=== PATIENT | female | born 1965 | race African-American/Black ===

== ENCOUNTER 2018-05-06 01:53 | Inpatient (IN) | payer SELFPAY ==
[2018-05-06 02:31] LABS: Mean Corpuscular HGB CONC 30.8 g/dL (32.0-36.0); Mean Corpuscular Hemoglobin 24.4 pg (27.0-31.0); Mean Corpuscular Volume 79.3 fL (78.0-98.0); Mean Platelet Volume 11.4 fL (7.4-10.4); Platelet Count 171 thou/uL (130-400); RBC Distribution Width 16.5 % (11.5-14.5); Red Blood Cell (RBC) Count 5.34 mill/uL (4.20-5.40); White Blood Cell (WBC) Count 22.2 thou/uL (4.8-10.8)
[2018-05-06 02:52] LABS: ALT (SGPT) 14 U/L (8-55); AST (SGOT) 13 U/L (5-34); Alkaline Phosphatase 178 U/L (40-150); Anion Gap 14 mmol/L (10-20); BUN (Urea Nitrogen) 8 mg/dL (9.8-20.1); Bilirubin, Total 1.1 mg/dL (0.2-1.2); CK (CPK) 115 U/L (29-168); Calc. Creatinine Clearance 0 mL/min (70-130); Calcium 9.6 mg/dL (7.8-10.44); Carbon Dioxide 22 mmol/L (22-29); Chloride 106 mmol/L (98-107); Estimated GFR-MDRD 68; Globulin 3.5 g/dL (2.4-3.5); Glucose 153 mg/dL (70-105); Potassium 3.7 mmol/L (3.5-5.1); Protein, Total 7.5 g/dL (6.0-8.3); Sodium 138 mmol/L (136-145)
[2018-05-06 02:55] LABS: CKMB 0.4 ng/mL (0-6.6); Troponin I Less than 0.010 ng/mL (< 0.028)
[2018-05-06 03:00] LABS: Band 6 % (5-11); Lymphocytes 13 % (21-51); MDiff Complete? YES; Monocytes 7 % (0-10); Neutrophil 74 % (42-75); PLT Morphology Comment Appears Adequate
[2018-05-06] MEDS ORDERED: Morphine 2 MG/ML SYRINGE ONE ×2 (04:15→06:00)
[2018-05-06] MEDS ORDERED: Enoxaparin Sodium 100 MG/ML SYRINGE ONE (04:48)
[2018-05-06] MEDS ORDERED: Enoxaparin Sodium 30 MG/0.3 ML SYRINGE ONE (04:48)
[2018-05-06] MEDS ORDERED: Guaifenesin DM 100-10/5 ML UDCUP PO PRN (05:18)
[2018-05-06] MEDS ORDERED: Enoxaparin Sodium 120 MG/0.8 ML SYRINGE SC SCH (05:30)
[2018-05-06 05:35] LABS: Actual Bicarbonate (HCO3a) 22.8 mEq/L (22-28); Analyzer IN Cardio ER; Base Excess (BEa) -1.4 mEq/L (-2.0 to +3.0); CO2 Tension 36.7 mmHg (35.0-45.0); Calcium, Ionized 1.14 mmol/L (1.12-1.30); Carboxyhemoglobin (COHb) 2.8 gm% (0.0-3.0); Hemoglobin (Hb) 13.2 g/dL (12.0-16.0); O2 Tension (PaO2) 67.7 mmHg (80.0-100.0); Potassium - ABG Lab 3.77 mmol/L (3.70-5.30); pH, Arterial 7.41 (7.35-7.45)
[2018-05-06 05:36] LABS: Puncture Site LRA
[2018-05-06 05:37] LABS: ALV-art Gradient 128.845 (0-20)
--- NOTE | 2018-05-06 05:46 | HP ---
DATE OF ADMISSION: 05/06/2018 REASON FOR ADMISSION: Pulmonary embolus, acute respiratory failure with hypoxia, possible sepsis. HISTORY OF PRESENT ILLNESS: The patient stays she started having chest pain from Thursday, which was worse on deep breathing and radiating to the back. This was worse on the left side of her chest. ronal initially thought this was gas pain. This progressively got worse yesterday and finally she made i t to the emergency room here. On arrival, the patient was on nonrebreather and was saturating 70% pr ior to that. Currently, she is back on 2 liters nasal cannula and is saturating 95%. Has dry cough, but no expectoration. No history of fever. The patient states she is active in life and takes care of her mom. No recent history of long travel. PAST MEDICAL AND SURGICAL HISTORY: Schizophrenia, follows up with [facility], anxiety, depression, scolios is, left breast biopsy. CURRENT MEDICATIONS: Takes Prozac and an unknown schizophrenia medication. She goes to [facility] in [place] and we will try to obtain her medication list from either her pharmacy or [facility]. ALLERGIES: No known drug allergies. PERSONAL HISTORY: Smokes half pack a day. Does not abuse alcohol or drugs. She lives by herself. Has 2 sons who live in [place]. FAMILY HISTORY: Mother is living and the patient takes care of her. No history of early heart disea se in the family or clots. CODE STATUS: Full. Power of assistant district attorney is her mother, Ms. Dean. REVIEW OF SYSTEMS: The following complete review of systems was negative, unless otherwise mentioned in the HPI or below: Constitutional: Weight loss or gain, ability to conduct usual activities. Sk in: Rash, itching. Eyes: Double vision, pain. ENT/Mouth: Nose bleeding, neck stiffness, pain, te nderness. Cardiovascular: Palpitations, dyspnea on exertion, orthopnea. Respiratory: Shortness of breath, wheezing, cough, hemoptysis, fever or night sweats. Gastrointestinal: Poor appetite, abdom inal pain, heartburn, nausea, vomiting, constipation, or diarrhea. Genitourinary: Urgency, frequenc y, dysuria, nocturia. Musculoskeletal: Pain, swelling. Neurologic/Psychiatric: Anxiety, depressio n. Allergy/Immunologic: Skin rash, bleeding tendency. PHYSICAL EXAMINATION: GENERAL: The patient is a 53-year-old female who is currently not in any acute distress. VITAL SIGNS: Blood pressure 136/64, pulse 120 per minute, respiratory rate 26 per minute, temperatur e 98.9 degrees Fahrenheit, saturating 95% on 2 liters nasal cannula. NECK: Supple. No elevated JVD. HEENT: Extraocular muscles intact. Pupils reacting to light. Oral cavity, mucous membranes are dry . No exudates or congestion. CARDIOVASCULAR: S1, S2 heard. Tachycardic. No murmur. RESPIRATORY: Air entry 1+ bilateral. Scattered wheezes plus bilaterally. ABDOMEN: Soft. Bowel sounds heard. No tenderness, rigidity or guarding. EXTREMITIES: No peripheral edema or calf tenderness. VASCULAR SYSTEM: Peripheral pulses 1+ bilateral. No ischemic ulcerations or gangrene. CENTRAL NERVOUS SYSTEM: No gross focal deficits noted. The patient is alert, awake and oriented wel l. PSYCHIATRIC: The patient's mood is a bit anxious, otherwise no hallucinations or delusions. LABORATORY AND X-RAY FINDINGS: EKG done shows sinus tachycardia at 115 beats per minute. There is l eft anterior fascicular block seen. CT angio chest read by [facility] shows intraluminal fill ing defect involving left main pulmonary artery and upper and lower lobe branches, peripheral right-s ided branches are poorly visualized due to respiratory motion. White count of 22, H and H 13 and 42, platelet count 171,000, MCV 79 with 74% neutrophils, 6% bands. D-dimer was 3.8. Electrolytes are s table. BUN 8, creatinine 1.0, serum glucose 153. AST and ALT within normal limits. Alkaline phosph atase is 178, albumin is 4.0. First set of cardiac enzymes are negative. CLINICAL IMPRESSION AND PLAN: The patient will be admitted to telemetry for pulmonary embolus with p leuritic left-sided chest pain. The patient also has elevated white count and has chronic obstructiv e pulmonary disease exacerbation as well. She will be empirically placed on Levaquin 500 mg IV daily . Blood and sputum cultures will be obtained. Ultrasound venous Doppler of lower extremities will b e obtained. She will be on Lovenox 110 mg q.12 hourly. She can be switched over to newer anticoagul ants in the morning once she is more stable. She has acute respiratory failure with hypoxia on arriv al and is slowly getting stabilized on nasal cannula at present. We will also give her steroids, Oksana u-Medrol 40 mg IV q.6 hourly. DuoNeb q.6 hourly. An echo with 2D Doppler will be obtained as well. Pulmonary consultation with Dr. Pham who is crack off person will be requested as well.
[2018-05-06] MEDS ORDERED: Levofloxacin 750 mg/D5W 500 MG in Premix Bag 1 BAG IVPB SCH (06:00)
[2018-05-06] MEDS ORDERED: Acetaminophen 325 MG TAB PO PRN (07:21)
[2018-05-06] MEDS ORDERED: Ondansetron PF 4 MG/2 ML Vial IVP PRN (07:21)
[2018-05-06] MEDS ORDERED: Ondansetron ODT 4 MG TAB SL PRN (07:21)
--- NOTE | 2018-05-06 07:59 | RAD ---
CHEST 1 VIEW: HISTORY: Chest pain. COMPARISON: None available. FINDINGS: Cardiac silhouette is magnified by projection. Pulmonary vasculature upper limits of normal. Ill-de fined parenchymal opacity at the left anterior lung base obscures the left cardiac margin. No eviden ce of pneumothorax. IMPRESSION: Lingular infiltrate left upper lobe. Please see report from subsequently performed CT arteriogram ch est. POS: [facility]
--- NOTE | 2018-05-06 08:12 | CT ---
PRELIMINARY REPORT/[facility]/EMERGENTY AFTER-HOURS PROCEDURE CT Angiography Chest With Intravenous Contrast EXAM DATE/TIME: 05/06/2018 4:33 AM CLINICAL HISTORY: 53 years old, female; Pain and signs and symptoms; Shortness of breath; Chest pain; Patient HX: Er 3; 53 yo f w/ pmh of anxiety, morbid obesity and tobacco abuse presents via ems for evaluation of chest pain described as sharp and shooting located in left chest radiating to left arm and back. Worse wit h deep inspiration. No associated n/v diaphoresis. Does report pleuritic type pain. TECHNIQUE: Axial computed tomographic angiography images of the chest with intravenous contrast using CT angiogr aphy protocol. Coronal reformatted images were created and reviewed. MIP reconstructed images were created and reviewed. COMPARISON: No relevant prior studies available. FINDINGS: Pulmonary arteries: There is intraluminal filling defect involving the LEFT main pulmonary artery and upper and lower lobe branches. Peripheral right-sided branches are poorly visualized due to respirat ory motion. Aorta: The aorta is normal. There is no evidence of aortic dissection, leak, rupture, or other compli cations. Lungs: There are areas of atelectasis and consolidation within the LEFT lung particularly within the lingula and LEFT lower lobe; an element of pulmonary infarction cannot be excluded. Pleural space: There is trace LEFT pleural effusion. Heart: RV LV ratio measures 0.8. No evidence of RIGHT heart strain. Mediastinum: The trachea is normal. Thyroid: The visualized thyroid gland is unremarkable. Bones/joints: There are healed left rib fractures. Soft tissues: Unremarkable. Lymph nodes: Unremarkable. No enlarged lymph nodes. Liver: There is a simple right lobe hepatic cyst. There are multiple liver hypodensities that cannot be further characterized on the current examination. Adrenals: There is nonspecific LEFT adrenal gland thickening. IMPRESSION: 1. Extensive acute left-sided pulmonary emboli as above. No CT evidence of RIGHT heart strain. 2. There are peripheral areas of atelectasis and consolidation within the LEFT lung particularly with in the lingula and LEFT lower lobe; an element of pulmonary infarction cannot be excluded. 3. Large RIGHT liver cyst and smaller hypodensities also probably representing cysts in a low risk pa tient. Thank you for allowing us to participate in the care of your patient. Dictated and Authenticated by: Demetrio Vázquez MD 05/06/2018 5:00 AM Central Time ([place] & [place]) FINAL REPORT CT PULMONARY ANGIO OF CHEST INCLUDING 3D RENDERING: EMERGENCY AFTER HOURS EXAM: TIME: 4:35 a.m. DATE: 05/06/2018. Very extensive left-sided pulmonary thromboemboli including the left main pulmonary artery as well as some less marked peripheral changes in the right pulmonary artery branches with patchy parenchymal c hanges in the lingula and left lower lobe with a small left pleural effusion, evidence for pulmonary infarct or possibly pneumonia or pneumonitis. Stable liver hypodensities and nodular-appearing adren al gland. POS: [facility]
--- NOTE | 2018-05-06 10:00 | CON ---
DATE OF CONSULTATION: 05/06/2018 CONSULTING PHYSICIAN: Hospitalist group. REASON FOR CONSULTATION: Pulmonary embolism. HISTORY OF PRESENT ILLNESS: This patient is a 53-year-old female who presented with a day long histo ry of left-sided chest pain. She was found to have an extensive left-sided pulmonary embolism. She was initially short of breath, has been weaned down to about 2 liters nasal cannula. She continued t o complain of left-sided chest pain. She has no previous history of trauma to her leg. She has no history of prolonged bed rest. She has no family history of pulmonary emboli. She is not taking any type of estrogen therapy or cont rol. PAST MEDICAL HISTORY: 1. Schizophrenia. 2. Depression. 3. Anxiety. PAST SURGICAL HISTORY: She had a left breast biopsy. MEDICATIONS PRIOR TO ADMISSION: Prozac and some other schizophrenia medication. ALLERGIES: None. SOCIAL HISTORY: Smokes half pack per day. Denies alcohol or illicit drug use. Just moved here [facility] from [place] to take care of her mother. FAMILY MEDICAL HISTORY: Unremarkable. REVIEW OF SYSTEMS: Twelve point review of systems otherwise negative. PHYSICAL EXAMINATION: VITAL SIGNS: Temperature 98.4, pulse 100, respiration 16, O2 sat 92% on 3 liters, blood pressure 117 /57. GENERAL: The patient is in obvious discomfort, but in no acute respiratory distress. HEENT: Pupils react. Sclerae icteric. Oropharynx clear. NECK: No adenopathy or JVD. LUNGS: She has a few crackles in left base, right side clear. CARDIOVASCULAR: S1, S2 regular, without murmur. ABDOMEN: Soft, obese, nontender, nondistended. EXTREMITIES: No clubbing, cyanosis, or edema. LABORATORY AND X-RAY FINDINGS: White blood cell count 22.2, hematocrit 42.4, platelet count 171 with 76% neutrophils, 6% bands. D-dimer 3.8, pH 7.41, pCO2 36, pO2 67 that was on 3 liters. Sodium 138, potassium 3.7, chloride 106, CO2 22, BUN 8, creatinine 1.0, glucose 153. I reviewed the CT in detail. The left side pulmonary embolism was noted. Also, she has some infiltr ative changes in the left base which could be either pulmonary infarction or pneumonitis. ASSESSMENT: 1. Pulmonary embolism. 2. Probable pulmonary infarction. 3. Possible pneumonia, although I think this is more likely pulmonary infarction. RECOMMENDATIONS: 1. I agree with enoxaparin for initial therapy. In a day or two we might consider changing over to Eliquis. 2. Steroids and nonsteroidal anti-inflammatory medication for pain management. 3. Check echo and venous Doppler. 4. Keep on telemetry monitoring.
--- NOTE | 2018-05-06 11:45 | ULT ---
BILATERAL LOWER EXTREMITY VENOUS DOPPLER WITH SPECTRAL ANALYSIS AND COLOR FLOW EVALUATION: DATE: 05/06/2018. HISTORY: Pulmonary emboli with extensive pulmonary emboli on the left. FINDINGS: Rogel scale, color flow, Doppler evaluation, and spectral analysis of the bilateral lower extremity ve nous structures is performed with 2D imaging. The bilateral lower extremity common femoral, superfic ial femoral, popliteal, posterior tibial, most proximal greater saphenous, and profunda femoral veins are imaged. There is increased lumen echogenicity and decreased lumen compressibility as well as diminished flow within the right common femoral vein with echogenic material and absence of flow in the right lower e xtremity greater saphenous vein. Findings are consistent with occlusive thrombus in the greater saph enous vein with propagation of thrombus into the right common femoral vein. Thrombus in the right co mmon femoral vein is nonocclusive. There is otherwise normal lumen compressibility and flow seen throughout the remainder of the right l ower extremity deep venous structures. There is normal lumen compressibility, flow, and augmentation of the visualized deep venous structure s of the left lower extremity. There is an oval-shaped lobulated anechoic cystic structure seen in the left popliteal fossa which me asures 2.8 cm x 2.8 cm x 1 cm with echogenic material present within the cyst. No flow is seen on co jb flow evaluation. Findings are likely related to a mildly complicated Lobato's cyst. IMPRESSION: 1. Occlusive thrombus in the visualized right lower extremity greater saphenous vein with propagatio n and extension of thrombus into the right common femoral vein with evidence of nonocclusive deep vei n thrombosis in the right common femoral vein. 2. No evidence of a deep vein thrombosis involving the visualized deep venous structures left lower extremity. 3. Complicated Lobato's cyst left popliteal fossa measuring 2.8 cm in greatest dimensions. POS: [facility]
[2018-05-06] MEDS ORDERED: Fentanyl 100 MCG/2 ML VIAL SLOW IVP SCH (12:15)
[2018-05-06] MEDS: Sodium Chloride 0.9% 1,000 ML IV SCH (12:23)
[2018-05-06] MEDS: Famotidine 20 MG TAB PO SCH ×2 (12:25→20:45)
[2018-05-06] MEDS: FLUoxetine HCl 20 MG CAP PO SCH (12:25)
[2018-05-06 13:34] LABS: Hemoglobin 12.5 g/dL (12.0-16.0); Platelet Count 154 thou/uL (130-400)
[2018-05-06] MEDS ORDERED: Iopamidol 370 76% 100 ML VIAL ONE (16:17)
[2018-05-06] MEDS: Fentanyl 100 MCG/2 ML VIAL SLOW IVP PRN (19:37)
[2018-05-06] MEDS: Enoxaparin Sodium 120 MG/0.8 ML SYRINGE SC SCH (20:45)
[2018-05-07] MEDS: Sodium Chloride 0.9% 1,000 ML IV SCH ×2 (02:31→17:01)
[2018-05-07 05:30] LABS: Anion Gap 12 mmol/L (10-20); BUN (Urea Nitrogen) 13 mg/dL (9.8-20.1); Calc. Creatinine Clearance 113 mL/min (70-130); Calcium 9.9 mg/dL (7.8-10.44); Carbon Dioxide 20 mmol/L (22-29); Chloride 110 mmol/L (98-107); Estimated GFR-MDRD 67; Glucose 263 mg/dL (70-105); Potassium 4.1 mmol/L (3.5-5.1); Sodium 138 mmol/L (136-145)
[2018-05-07 05:34] LABS: Band 11 % (5-11); Hemoglobin 12.3 g/dL (12.0-16.0); Lymphocytes 5 % (21-51); MDiff Complete? YES; Mean Corpuscular HGB CONC 29.7 g/dL (32.0-36.0); Mean Corpuscular Hemoglobin 23.7 pg (27.0-31.0); Mean Corpuscular Volume 79.7 fL (78.0-98.0); Mean Platelet Volume 11.7 fL (7.4-10.4); Monocytes 6 % (0-10); Neutrophil 78 % (42-75); Platelet Count 164 thou/uL (130-400); RBC Distribution Width 16.4 % (11.5-14.5); Red Blood Cell (RBC) Count 5.19 mill/uL (4.20-5.40); White Blood Cell (WBC) Count 26.6 thou/uL (4.8-10.8)
[2018-05-07] MEDS: Enoxaparin Sodium 120 MG/0.8 ML SYRINGE SC SCH ×2 (08:49→22:06)
[2018-05-07] MEDS: Famotidine 20 MG TAB PO SCH ×2 (08:49→22:10)
[2018-05-07] MEDS: FLUoxetine HCl 20 MG CAP PO SCH (08:49)
--- NOTE | 2018-05-07 08:49 | PRG ---
DATE OF SERVICE: 05/07/2018 Ms. Verma reports that she feels better compared to yesterday. She is having less chest pain. PHYSICAL EXAMINATION: VITAL SIGNS: Temperature 98.0, pulse 103, respirations 18, O2 sat 100% on 2 liters, blood pressure 1 23/70. HEENT: Unremarkable. NECK: No JVD. LUNGS: Clear to auscultation. CARDIAC: S1 and S2 regular. ABDOMEN: Soft. EXTREMITIES: No edema. LABORATORY DATA: White blood count 26.6, hematocrit 41.4, platelet count 164 with 78% neutrophils, 1 1% bands. Sodium 138, potassium 4.1, chloride 110, CO2 20, BUN 13, creatinine 1.0, glucose 263. Her echocardiogram shows EF of 65-70% with grade 1/3 diastolic dysfunction and mild tricuspid regurgi tation. The right-sided chambers could not be visualized well. There was no report of right heart s train; however. The Doppler ultrasound of the lower extremities demonstrates an occlusive thrombus i n the greater saphenous vein in the right lower extremity extending up to the right common femoral ve in. ASSESSMENT: 1. Deep venous thrombosis/pulmonary embolism. 2. Likely some degree of pulmonary infarction. 3. Question of concurrent pneumonia. 4. Hyperglycemia, likely secondary to the steroids that have been prescribed for her pleuritic chest pain. PLAN: This patient is uninsured. Therefore, I think she will have to be on warfarin unless we can g et some type of institutional approval to finance one of the more novel anticoagulants. Assuming iftikhar t will not happen, I think we should go ahead and start her on warfarin. She will need to be maintai temitope on that for 6 months with a goal INR of 2-2.0.
[2018-05-07 09:40] LABS: INR-International Normal Ratio 1.1; Prothrombin Time 13.9 SEC (12.0-14.7)
--- NOTE | 2018-05-07 11:10 | PRG ---
DATE OF SERVICE: 05/07/2018 SUBJECTIVE: The patient is seen and examined at the bedside. She is doing significantly better. He r breathing is improved and the chest pain, she complained yesterday, is significantly better. OBJECTIVE: VITAL SIGNS: Blood pressure is 123/70, pulse is 103, temperature 98, respiratory rate 18, pulse oxim etry is 100% on 2 liters by nasal cannula. GENERAL: She is an obese lady, her BMI is 40. HEENT: Her head is atraumatic and normocephalic. Eyes are PERRLA. Sclerae nonicteric. Oral mucosa is moist. NECK: Supple, obese. Thyroid is not palpable. LUNGS: Breath sounds significantly diminished at both bases. HEART: S1 and S2, tachycardic, no S3 and no S4. ABDOMEN: Obese, soft, nontender, nondistended. EXTREMITIES: No clubbing, cyanosis, or edema. NEUROLOGICAL EXAMINATION: She is alert and oriented x4. There is not any sensorimotor deficit prese nt. Cranial nerves are intact. LABORATORY DATA: Showed a white count of 26.6, hemoglobin of 12.3, hematocrit 41.4, platelet count i s 164. INR 1.1 and PT 13.9. Sodium of 138, potassium 4.1, chloride 110, CO2 of 20, BUN 13, creatini ne 1.03, glucose ranges from 153-263. Echocardiogram showed a technically difficult examination. Ej ection fraction is visualized and estimated at 65%-70%. There is a grade 1 diastolic dysfunction, mi ld mitral regurgitation, mild tricuspid regurgitation and the right-sided chambers were not visualize d properly. IMPRESSION: 1. Acute pulmonary embolus. 2. Acute deep venous thrombosis of the right lower extremity. 3. Questionable pneumonia. 4. Hyperglycemia. I agree with Dr. Pham most likely this is related to the steroids she was pres cribed for her pleuritic chest pain. 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 For now, she is going to continue her 110 mg of Lovenox subcutaneously every 12 hours and she will be started on 5 mg of warf shi tonight. We will continue levofloxacin and we will continue DuoNeb q.6 hours.
[2018-05-07 12:48] LABS: Hemoglobin 12.5 g/dL (12.0-16.0); Platelet Count 168 thou/uL (130-400)
[2018-05-07] MEDS: Fentanyl 100 MCG/2 ML VIAL SLOW IVP PRN ×2 (15:08→23:21)
[2018-05-07] MEDS: Warfarin Sodium 5 MG TAB PO SCH (17:00)
[2018-05-07] MEDS: Senokot S 8.6-50 MG TAB PO PRN (22:10)
[2018-05-08 05:54] LABS: INR-International Normal Ratio 1.1; PTT 32.9 SEC (22.9-36.1); Prothrombin Time 14.6 SEC (12.0-14.7)
[2018-05-08] MEDS: Acetaminophen 325 MG TAB PO PRN (06:30)
[2018-05-08] MEDS: Sodium Chloride 0.9% 1,000 ML IV SCH ×3 (09:18→23:26)
[2018-05-08] MEDS: Enoxaparin Sodium 120 MG/0.8 ML SYRINGE SC SCH ×2 (09:18→21:23)
[2018-05-08] MEDS: Famotidine 20 MG TAB PO SCH ×2 (09:19→21:23)
[2018-05-08] MEDS: FLUoxetine HCl 20 MG CAP PO SCH (09:19)
[2018-05-08 10:18] LABS: INR-International Normal Ratio 1.1; Prothrombin Time 14.2 SEC (12.0-14.7)
--- NOTE | 2018-05-08 13:13 | PDOC.PN ---
- Subjective Encounter Start Date: 05/08/18 Encounter Start Time: 10:00 Patient seen and examined for PE. SOB on exertion +. No new complaints. No overnight events - Objective Resuscitation Status: Resuscitation Status FULL:Full Resuscitation MAR Reviewed: Yes Vital Signs & Weight: Vital Signs (12 hours) Temp Pulse Resp BP Pulse Ox 05/08/18 09:13 97.6 F 102 H 22 H 139/66 96 05/08/18 06:34 93 L 05/08/18 06:30 100 20 05/08/18 03:21 98.3 F 100 19 116/54 L 97 05/08/18 02:43 101 H 18 90 L Weight Admit Weight 255 lb 4 oz Weight 258 lb 9.6 oz I&O: 05/07/18 05/08/18 05/09/18 06:59 06:59 06:59 Intake Total 2078 Output Total 3500 Balance -1422 Result Diagrams: 05/07/18 09:15 05/08/18 04:58 EKG Reviewed by me: Yes (Tele SR) Phys Exam - Physical Examination Constitutional: NAD Neck: no JVD Respiratory: no wheezing, no rhonchi, clear to auscultation bilateral Bibasilar rales Cardiovascular: RRR, no rub no heaves/pulsations Gastrointestinal: soft, non-tender, positive bowel sounds Musculoskeletal: no edema Dx/Plan - Plan DVT proph w/lovenox 1. PE/DVT 2. Sepsis due to suspected CAP - ?Pneumococcal 3. Morbid Obesity BMI 40.5 4. Hyperglycemia - prob steroid induced 5. Other issues per previous notes PLAN: Cont Lovenox/Warfarin Cont Atbx AM labs Cont other meds as below Change Steroids to PO A1c in AM Review of Systems - Review of Systems Respiratory: SOB with Excertion. negative: Cough, Dry, Shortness of Breath, Hemoptysis, Pleuritic Pain, Sputum, Wheezing Gastrointestinal: negative: Nausea, Vomiting, Abdominal Pain, Diarrhea, Constipation, Melena, Hematochezia, Other - Medications/Allergies Allergies/Adverse Reactions: Allergies Allergy/AdvReac Type Severity Reaction Status Date / Time No Known Drug Allergies Allergy Verified 05/06/18 05:23 Medications: Current Medications Acetaminophen (Tylenol) 650 mg PO Q4H PRN PRN Reason: Headache/Fever/Mild Pain (1-3) Last Admin: 05/08/18 06:30 Dose: 650 mg Albuterol/Ipratropium (Duoneb) 3 ml NEB [id number] [facility] Last Admin: 05/08/18 06:30 Dose: 3 ml Enoxaparin Sodium (Lovenox) 110 mg SC Q12HR [facility] Last Admin: 05/08/18 09:18 Dose: 110 mg Famotidine (Pepcid) 20 mg PO BID [facility] Last Admin: 05/08/18 09:19 Dose: 20 mg Fentanyl (Sublimaze) 25 mcg SLOW IVP Q6H PRN PRN Reason: Moderate to Severe Pain (4-10) Last Admin: 05/07/18 23:21 Dose: 25 mcg Fluoxetine HCl (Prozac) 20 mg PO DAILY [facility] Last Admin: 05/08/18 09:19 Dose: 20 mg Guaifenesin/Dextromethorphan (Robitussin Dm) 15 ml PO Q4H PRN PRN Reason: Cough Sodium Chloride (Normal Saline 0.9%) 1,000 mls @ 70 mls/hr IV .[id number] [facility] Last Admin: 05/08/18 09:18 Dose: 1,000 mls Levofloxacin 500 mg/ Device 100 mls @ 100 mls/hr IVPB Q24HR [facility] Last Admin: 05/07/18 12:05 Dose: 100 mls Ibuprofen (Motrin) 600 mg PO Q6H PRN PRN Reason: Pain Methylprednisolone Sodium Succinate (Solu-Medrol) 40 mg IVP Q6HR [facility] Last Admin: 05/08/18 06:31 Dose: 40 mg Senna/Docusate Sodium (Senokot S) 2 tab PO BID PRN PRN Reason: Constipation Last Admin: 05/07/18 22:10 Dose: 2 tab Warfarin Sodium (Coumadin) 5 mg PO 1700 [facility] Last Admin: 05/07/18 17:00 Dose: 5 mg
[2018-05-08] MEDS: Senokot S 8.6-50 MG TAB PO PRN (13:28)
--- NOTE | 2018-05-08 15:39 | PRG ---
DATE OF SERVICE: 05/08/2018 SERVICE: Pulmonary Medicine. INTERVAL HISTORY: The patient is doing really well from a respiratory standpoint. She indicates her breathing has actually improved dramatically. She denies any current chest pain, fevers, or chills. She is having a little bit of hemoptysis. Has flakes of blood in the sputum. Outside of this, the re has been no interval change to her condition. PHYSICAL EXAMINATION: VITAL SIGNS: Afebrile, pulse 95, blood pressure 135/85, respirations 16, saturation 97% on 2 liters nasal cannula. GENERAL: The patient is awake, alert, in no apparent distress. LUNGS: Excellent air entry. There is no prolonged expiratory phase. Rhonchi are present, but clear with cough. No wheezing or crackles are appreciated. HEART: Normal rate, regular. ABDOMEN: Soft, nontender, nondistended. Bowel sounds are positive. MUSCULOSKELETAL: No cyanosis or clubbing. There is trace pitting in the bilateral lower extremities . NEUROLOGIC: Grossly nonfocal. LABORATORY DATA: INR 1.1, creatinine 1.06. Respiratory culture and blood cultures x2 were unremarka ble to date. ASSESSMENT: 1. Acute hypoxic respiratory failure. 2. Acute pulmonary embolism/deep venous thrombosis. 3. Community-acquired pneumonia, possible. DISCUSSION AND PLAN: We will continue supportive care including antibiotics. These can be interrupt ed after 5-7 days. She is currently on Coumadin. Her INR remains 1.1. If it is low, tomorrow, we w ill need to push the dose of her Coumadin. Pulmonary or Critical Care will continue to follow along. I will wean oxygen away as tolerated.
[2018-05-08] MEDS: Warfarin Sodium 5 MG TAB PO SCH (16:56)
[2018-05-08] MEDS: predniSONE 20 MG TAB PO SCH (16:56)
[2018-05-09 05:23] LABS: INR-International Normal Ratio 1.1; PTT 23.5 SEC (22.9-36.1); Prothrombin Time 14.3 SEC (12.0-14.7)
[2018-05-09 05:27] LABS: Hemoglobin A1c 6.1 % (4.0-6.0)
[2018-05-09 06:27] LABS: Band 12 % (5-11); Hemoglobin 10.4 g/dL (12.0-16.0); Lymphocytes 9 % (21-51); MDiff Complete? YES; Mean Corpuscular HGB CONC 30.3 g/dL (32.0-36.0); Mean Corpuscular Hemoglobin 24.1 pg (27.0-31.0); Mean Corpuscular Volume 79.3 fL (78.0-98.0); Mean Platelet Volume 11.6 fL (7.4-10.4); Monocytes 4 % (0-10); Myelocyte 1 % (0-0); Neutrophil 74 % (42-75); Platelet Count 180 thou/uL (130-400); RBC Distribution Width 15.9 % (11.5-14.5); Red Blood Cell (RBC) Count 4.32 mill/uL (4.20-5.40)
[2018-05-09] MEDS ORDERED: WARFARIN PO PRN (08:48)
[2018-05-09] MEDS: Enoxaparin Sodium 120 MG/0.8 ML SYRINGE SC SCH ×2 (09:23→21:42)
[2018-05-09] MEDS: Famotidine 20 MG TAB PO SCH ×2 (09:24→21:42)
[2018-05-09] MEDS: FLUoxetine HCl 20 MG CAP PO SCH (09:24)
[2018-05-09] MEDS: predniSONE 20 MG TAB PO SCH ×2 (09:24→17:08)
[2018-05-09] MEDS ORDERED: Warfarin Sodium 7.5 MG TAB PO SCH (17:00)
[2018-05-09] MEDS: Acetaminophen 325 MG TAB PO PRN (17:08)
--- NOTE | 2018-05-09 19:06 | PRG ---
DATE OF SERVICE: 05/09/2018 SERVICE: Pulmonary Medicine. INTERVAL HISTORY: The patient is doing really well from a respiratory standpoint. She has been wean ed down to room air. She denies any current chest pain, fevers or chills. Otherwise, there has been no interval change to her condition. PHYSICAL EXAMINATION: VITAL SIGNS: Afebrile, pulse 89, blood pressure 139/73, respirations 19, saturation 95% on 1 liter n janis cannula. GENERAL: The patient is awake and alert, in no apparent distress. LUNGS: Excellent air entry with no prolonged expiratory phase, wheezing, rhonchi or crackles. HEART: Normal rate, regular. ABDOMEN: Soft, nontender, nondistended. Bowel sounds are positive. MUSCULOSKELETAL: No cyanosis or clubbing. There is no pitting in the bilateral lower extremities. NEUROLOGIC: Grossly nonfocal. LABORATORY DATA: WBC 21, hemoglobin 10.4, platelets 180,000. Basic metabolic profile is essentially unremarkable from the 9th. Hemoglobin A1c is 6.1, TSH falls within normal limits of 0.87. Creatini ne 1.08. ASSESSMENT: 1. Acute hypoxic respiratory failure, resolved. 2. Acute pulmonary embolism/deep vein thrombosis. 3. Community-acquired pneumonia, possible. DISCUSSION AND PLAN: We will continue her antibiotics and blood thinners. Her INR remains low at 1. 1. We will push the dose of the Coumadin. IV fluids will be interrupted. Dr. Pham will resume c are in the morning.
--- NOTE | 2018-05-09 21:39 | PDOC.PN ---
- Subjective Encounter Start Date: 05/09/18 Encounter Start Time: 09:45 Patient seen and examined for PE/DVT. SOB improving. No new complaints. No overnight events - Objective Resuscitation Status: Resuscitation Status FULL:Full Resuscitation MAR Reviewed: Yes Vital Signs & Weight: Vital Signs (12 hours) Temp Pulse Resp BP Pulse Ox 05/09/18 20:06 95 18 85 L 05/09/18 17:04 98.3 F 89 19 139/73 95 05/09/18 13:58 90 16 96 05/09/18 13:27 98.0 F 100 22 H 129/74 94 L Weight Admit Weight 255 lb 4 oz Weight 260 lb 4.8 oz I&O: 05/08/18 05/09/18 05/10/18 06:59 06:59 06:59 Intake Total 2078 3370 2040 Output Total 3500 1450 900 Balance -1422 1920 1140 Result Diagrams: 05/09/18 04:59 05/09/18 04:59 EKG Reviewed by me: Yes (Tele SR) Phys Exam - Physical Examination Constitutional: NAD Respiratory: no wheezing Scat rales/rhonchi. Dec AE at bases Cardiovascular: RRR, no rub Gastrointestinal: soft, non-tender, positive bowel sounds Musculoskeletal: no edema Neurological: moves all 4 limbs Dx/Plan - Plan DVT proph w/lovenox 1. PE/DVT 2. Sepsis due to suspected CAP - ?Pneumococcal 3. Morbid Obesity BMI 40.5 4. Impaired glucose tolerance 5. Other issues per previous notes PLAN: Cont Lovenox Increase Warfarin dose Cont Atbx/Steroids AM labs Cont other meds as below Laboratory Tests 05/09/18 05/09/18 05/09/18 04:59 04:59 04:59 INR 1.1 Hemoglobin A1c 6.1 H TSH 3rd Generation 0.8755 Review of Systems - Review of Systems Cardiovascular: negative: chest pain, palpitations, orthopnea, paroxysmal nocturnal dyspnea, edema, light headedness, other Gastrointestinal: negative: Nausea, Vomiting, Abdominal Pain, Diarrhea, Constipation, Melena, Hematochezia, Other - Medications/Allergies Allergies/Adverse Reactions: Allergies Allergy/AdvReac Type Severity Reaction Status Date / Time No Known Drug Allergies Allergy Verified 05/06/18 05:23 Medications: Current Medications Acetaminophen (Tylenol) 650 mg PO Q4H PRN PRN Reason: Headache/Fever/Mild Pain (1-3) Last Admin: 05/09/18 17:08 Dose: 650 mg Albuterol/Ipratropium (Duoneb) 3 ml NEB [id number] [facility] Last Admin: 05/09/18 20:06 Dose: 3 ml Enoxaparin Sodium (Lovenox) 110 mg SC Q12HR [facility] Last Admin: 05/09/18 09:23 Dose: 110 mg Famotidine (Pepcid) 20 mg PO BID [facility] Last Admin: 05/09/18 09:24 Dose: 20 mg Fentanyl (Sublimaze) 25 mcg SLOW IVP Q6H PRN PRN Reason: Moderate to Severe Pain (4-10) Last Admin: 05/07/18 23:21 Dose: 25 mcg Fluoxetine HCl (Prozac) 20 mg PO DAILY [facility] Last Admin: 05/09/18 09:24 Dose: 20 mg Guaifenesin/Dextromethorphan (Robitussin Dm) 15 ml PO Q4H PRN PRN Reason: Cough Levofloxacin 500 mg/ Device 100 mls @ 100 mls/hr IVPB Q24HR [facility] Last Admin: 05/09/18 13:36 Dose: 100 mls Ibuprofen (Motrin) 600 mg PO Q6H PRN PRN Reason: Pain Miscellaneous Medication (Pharmacy To Dose) 1 each PO DAILYPRN PRN PRN Reason: LABS Prednisone (Prednisone) 20 mg PO BID-[facility] Last Admin: 05/09/18 17:08 Dose: 20 mg Senna/Docusate Sodium (Senokot S) 2 tab PO BID PRN PRN Reason: Constipation Last Admin: 05/08/18 13:28 Dose: 2 tab Warfarin Sodium (Coumadin) 7.5 mg PO 1700 [facility] Last Admin: 05/09/18 17:08 Dose: 7.5 mg
[2018-05-10 05:44] LABS: INR-International Normal Ratio 1.2; Prothrombin Time 14.9 SEC (12.0-14.7)
[2018-05-10 05:52] LABS: Anion Gap 14 mmol/L (10-20); BUN (Urea Nitrogen) 19 mg/dL (9.8-20.1); Calc. Creatinine Clearance 118 mL/min (70-130); Calcium 10.2 mg/dL (7.8-10.44); Carbon Dioxide 24 mmol/L (22-29); Chloride 106 mmol/L (98-107); Estimated GFR-MDRD 70; Glucose 373 mg/dL (70-105); Magnesium 1.7 mg/dL (1.6-2.6); Sodium 140 mmol/L (136-145)
[2018-05-10 05:56] LABS: Hemoglobin 11.5 g/dL (12.0-16.0); Hypochromia SLIGHT = 6-15 cells (100X) (0-5/hpf); Lymphocytes 15 % (21-51); MDiff Complete? YES; Mean Corpuscular Hemoglobin 24.2 pg (27.0-31.0); Mean Corpuscular Volume 78.2 fL (78.0-98.0); Mean Platelet Volume 11.8 fL (7.4-10.4); Monocytes 6 % (0-10); Myelocyte 2 % (0-0); Neutrophil 77 % (42-75); Platelet Count 178 thou/uL (130-400); RBC Distribution Width 15.9 % (11.5-14.5); Red Blood Cell (RBC) Count 4.73 mill/uL (4.20-5.40); Target Cells SLIGHT = 2-5 cells (100X) (0-1/hpf); White Blood Cell (WBC) Count 17.5 thou/uL (4.8-10.8)
[2018-05-10] MEDS ORDERED: Dextrose 5% in Water 1,000 ML IV PRN (07:29)
[2018-05-10] MEDS ORDERED: Dextrose 50% Abboject 50 ML SYRINGE SLOW IVP PRN (07:29)
--- NOTE | 2018-05-10 07:57 | PRG ---
DATE OF SERVICE: 05/10/2018 The patient remains in the hospital undergoing anticoagulation. The main reason she is still here is that her INR is not therapeutic. She says that her chest pain and shortness of breath have improved markedly over the weekend. PHYSICAL EXAMINATION: VITAL SIGNS: Temperature 98.4, pulse 88, respirations 18, O2 sat is between 91 96% on room air, bloo d pressure 121/60. HEENT: Unremarkable. NECK: No JVD. LUNGS: Clear without wheezing or rhonchi. CARDIAC: S1 and S2 regular. ABDOMEN: Soft. EXTREMITIES: No edema. LABORATORY DATA: White blood cell count 17.5, hematocrit 37, platelet count 178. INR 1.2. Sodium 1 40, potassium 4, chloride 106, CO2 24, BUN 19, creatinine 1.0, glucose 373. ASSESSMENT: 1. Pulmonary embolism with probable pulmonary infarction. 2. Question of concurrent pneumonia. PLAN: 1. Given that her INR has been slow to increase, I will go ahead and go up on her Coumadin to 10 mg daily. If for some reason she cannot get patient assistance she can be transitioned to a different a nticoagulant. 2. I would go ahead and stop her steroids as this seems to be adversely affecting her blood sugar. 3. Stop antibiotics after 7 full days. I think she can go ahead be switched to oral antibiotics at this time. There is no real clear indication to keep her on telemetry at this time, so [facility]
[2018-05-10] MEDS: Famotidine 20 MG TAB PO SCH ×2 (08:12→20:57)
[2018-05-10] MEDS: Enoxaparin Sodium 120 MG/0.8 ML SYRINGE SC SCH ×2 (08:12→20:57)
[2018-05-10] MEDS: FLUoxetine HCl 20 MG CAP PO SCH (08:12)
[2018-05-10] MEDS: Senokot S 8.6-50 MG TAB PO SCH ×2 (08:13→20:57)
[2018-05-10] MEDS: Insulin Regular 300 UNITS/3 ML VIAL SC PRN (11:15)
[2018-05-10] MEDS: Warfarin Sodium 10 MG TAB PO SCH (17:03)
[2018-05-10] MEDS: Acetaminophen 325 MG TAB PO PRN (21:01)
--- NOTE | 2018-05-10 23:37 | PDOC.PN ---
- Subjective Encounter Start Date: 05/10/18 Encounter Start Time: 12:00 Patient seen and examined for PE. No new complaints. No overnight events - Objective Resuscitation Status: Resuscitation Status FULL:Full Resuscitation MAR Reviewed: Yes Vital Signs & Weight: Vital Signs (12 hours) Temp Pulse Resp BP Pulse Ox 05/10/18 20:00 98.0 F 107 H 20 107/70 98 05/10/18 19:18 96 05/10/18 19:17 96 05/10/18 16:00 98.1 F 88 20 123/82 96 05/10/18 14:36 90 L 05/10/18 14:20 98.0 F 103 H 22 H 126/85 90 L 05/10/18 13:49 85 18 92 L Weight Admit Weight 255 lb 4 oz Weight 259 lb 9.6 oz I&O: 05/09/18 05/10/18 05/11/18 06:59 06:59 06:59 Intake Total 3370 2790 500 Output Total 1450 3200 Balance 1920 -410 500 Result Diagrams: 05/10/18 05:13 05/10/18 05:13 Additional Labs: Accuchecks 05/10/18 05/10/18 05/10/18 20:14 16:28 10:56 POC Glucose 245 H 196 H 357 H Phys Exam - Physical Examination Constitutional: NAD Respiratory: no wheezing, no rhonchi Cardiovascular: RRR, no rub Gastrointestinal: soft, non-tender, positive bowel sounds Musculoskeletal: no edema Neurological: moves all 4 limbs Dx/Plan - Plan DVT proph w/SCDs 1. PE/DVT 2. Sepsis due to suspected CAP - ?Pneumococcal 3. Morbid Obesity BMI 40.5 4. Impaired glucose tolerance 5. Other issues per previous notes PLAN: Cont Lovenox/Warfarin Cont PO Atbx AM labs Cont other meds as below Review of Systems - Review of Systems Respiratory: negative: Cough, Dry, Shortness of Breath, Hemoptysis, SOB with Excertion, Pleuritic Pain, Sputum, Wheezing Cardiovascular: negative: chest pain, palpitations, orthopnea, paroxysmal nocturnal dyspnea, edema, light headedness, other - Medications/Allergies Allergies/Adverse Reactions: Allergies Allergy/AdvReac Type Severity Reaction Status Date / Time No Known Drug Allergies Allergy Verified 05/06/18 05:23 Medications: Current Medications Acetaminophen (Tylenol) 650 mg PO Q4H PRN PRN Reason: Headache/Fever/Mild Pain (1-3) Last Admin: 05/10/18 21:01 Dose: 650 mg Albuterol/Ipratropium (Duoneb) 3 ml NEB [id number] [facility] Last Admin: 05/10/18 19:17 Dose: 3 ml Dextrose/Water (Dextrose 50%) 25 gm SLOW IVP PRN PRN PRN Reason: Hypoglycemia Enoxaparin Sodium (Lovenox) 110 mg SC Q12HR [facility] Last Admin: 05/10/18 20:57 Dose: 110 mg Famotidine (Pepcid) 20 mg PO BID [facility] Last Admin: 05/10/18 20:57 Dose: 20 mg Fentanyl (Sublimaze) 25 mcg SLOW IVP Q6H PRN PRN Reason: Moderate to Severe Pain (4-10) Last Admin: 05/07/18 23:21 Dose: 25 mcg Fluoxetine HCl (Prozac) 20 mg PO DAILY [facility] Last Admin: 05/10/18 08:12 Dose: 20 mg Glucagon (Glucagon) 1 mg IM PRN PRN PRN Reason: Hypoglycemia Guaifenesin/Dextromethorphan (Robitussin Dm) 15 ml PO Q4H PRN PRN Reason: Cough Dextrose/Water (D5w) 1,000 mls @ 0 mls/hr IV .Q0M PRN PRN Reason: Hypoglycemia Ibuprofen (Motrin) 600 mg PO Q6H PRN PRN Reason: Pain Insulin Human Regular (Humulin R) 0 units SC .MILD SLIDING SCALE PRN PRN Reason: Mild Correctional Scale Last Admin: 05/10/18 11:15 Dose: 6 unit Insulin Human Regular (Humulin R) 0 units SC .BEDTIME SLIDING SC PRN PRN Reason: Bedtime Correctional Scale Levofloxacin (Levaquin) 500 mg PO DAILY [facility] Last Admin: 05/10/18 08:13 Dose: 500 mg Miscellaneous Medication (Pharmacy To Dose) 1 each PO DAILYPRN PRN PRN Reason: LABS Senna/Docusate Sodium (Senokot S) 2 tab PO BID [facility] Last Admin: 05/10/18 20:57 Dose: 2 tab Warfarin Sodium (Coumadin) 10 mg PO 1700 [facility] Last Admin: 05/10/18 17:03 Dose: 10 mg
[2018-05-11 04:52] LABS: INR-International Normal Ratio 1.3; Prothrombin Time 16.3 SEC (12.0-14.7)
[2018-05-11] MEDS: Insulin Regular 300 UNITS/3 ML VIAL SC PRN ×4 (05:22→20:13)
--- NOTE | 2018-05-11 07:39 | PRG ---
DATE OF SERVICE: 05/11/2018 SUBJECTIVE: The patient is about the same. She had no acute complaints except for mild cough. PHYSICAL EXAMINATION: VITAL SIGNS: Temperature 97.8, pulse 96, respirations 14, O2 sat 95% on 2 liters, blood pressure 113 /77. HEENT: Unremarkable. NECK: No JVD. CHEST: Clear without wheezing or rhonchi. CARDIAC: S1, S2 regular. ABDOMEN: Soft. EXTREMITIES: No edema. LABORATORY DATA: Her INR today is 1.3. ASSESSMENT: Deep venous thrombosis/pulmonary embolism. PLAN: Continuing anticoagulation with Lovenox and warfarin. Awaiting an INR of greater than 2 prior to discharge.
[2018-05-11] MEDS: FLUoxetine HCl 20 MG CAP PO SCH (09:00)
[2018-05-11] MEDS: Famotidine 20 MG TAB PO SCH ×2 (09:00→20:11)
[2018-05-11] MEDS: Senokot S 8.6-50 MG TAB PO SCH ×2 (09:00→20:11)
[2018-05-11] MEDS: Enoxaparin Sodium 120 MG/0.8 ML SYRINGE SC SCH ×2 (09:07→20:12)
[2018-05-11] MEDS ORDERED: Ondansetron ODT 4 MG TAB PO PRN (11:30)
[2018-05-11] MEDS: Ondansetron PF 4 MG/2 ML Vial IVP PRN (11:47)
[2018-05-11] MEDS ORDERED: predniSONE 20 MG TAB PO SCH (15:30)
[2018-05-11] MEDS: Warfarin Sodium 10 MG TAB PO SCH (17:19)
[2018-05-11] MEDS: OLANZapine 5 MG TAB PO SCH (20:11)
[2018-05-11] MEDS: Ibuprofen 600 MG TAB PO PRN (20:11)
--- NOTE | 2018-05-11 20:56 | PDOC.PN ---
- Subjective Encounter Start Date: 05/11/18 Encounter Start Time: 13:00 Patient seen and examined for PE. Mild intermittent Rt sided Pleuritic CP. No other complaints. No overnight events - Objective Resuscitation Status: Resuscitation Status FULL:Full Resuscitation MAR Reviewed: Yes Vital Signs & Weight: Vital Signs (12 hours) Pulse Resp Pulse Ox Pulse Ox Pulse Ox Pulse Ox 05/11/18 19:06 106 H 16 95 05/11/18 14:53 77 L 93 L 90 L 05/11/18 13:04 88 L 93 L 05/11/18 12:17 110 H 16 Weight Admit Weight 255 lb 4 oz Weight 259 lb 9.6 oz I&O: 05/10/18 05/11/18 05/12/18 06:59 06:59 06:59 Intake Total 2790 800 1280 Output Total 3200 Balance -521 964 4316 Result Diagrams: 05/10/18 05:13 05/10/18 05:13 Additional Labs: Accuchecks 05/11/18 05/11/18 05/11/18 20:10 16:46 11:27 POC Glucose 291 H 221 H 223 H 05/11/18 05/10/18 04:59 20:14 POC Glucose 317 H 245 H Phys Exam - Physical Examination Constitutional: NAD Respiratory: no wheezing, no rhonchi Cardiovascular: RRR, no rub Gastrointestinal: soft, non-tender, positive bowel sounds Dx/Plan - Plan 1. PE/DVT 2. Sepsis due to suspected CAP - ?Pneumococcal 3. Morbid Obesity BMI 40.5 4. Impaired glucose tolerance 5. Other issues per previous notes PLAN: Cont Lovenox/Warfarin Cont PO Atbx Resume Olanazapine Prednisone 20 mg PO x 1 AM labs Cont other meds as below Review of Systems - Review of Systems Respiratory: Pleuritic Pain. negative: Cough, Dry, Shortness of Breath, Hemoptysis, SOB with Excertion, Sputum, Wheezing Gastrointestinal: Nausea. negative: Vomiting, Abdominal Pain, Diarrhea, Constipation, Melena, Hematochezia, Other - Medications/Allergies Allergies/Adverse Reactions: Allergies Allergy/AdvReac Type Severity Reaction Status Date / Time No Known Drug Allergies Allergy Verified 05/06/18 05:23 Medications: Current Medications Acetaminophen (Tylenol) 650 mg PO Q4H PRN PRN Reason: Headache/Fever/Mild Pain (1-3) Last Admin: 05/10/18 21:01 Dose: 650 mg Albuterol/Ipratropium (Duoneb) 3 ml NEB [id number] [facility] Last Admin: 05/11/18 19:06 Dose: 3 ml Dextrose/Water (Dextrose 50%) 25 gm SLOW IVP PRN PRN PRN Reason: Hypoglycemia Enoxaparin Sodium (Lovenox) 110 mg SC Q12HR [facility] Last Admin: 05/11/18 20:12 Dose: 110 mg Famotidine (Pepcid) 20 mg PO BID [facility] Last Admin: 05/11/18 20:11 Dose: 20 mg Fentanyl (Sublimaze) 25 mcg SLOW IVP Q6H PRN PRN Reason: Moderate to Severe Pain (4-10) Last Admin: 05/07/18 23:21 Dose: 25 mcg Glucagon (Glucagon) 1 mg IM PRN PRN PRN Reason: Hypoglycemia Guaifenesin/Dextromethorphan (Robitussin Dm) 15 ml PO Q4H PRN PRN Reason: Cough Dextrose/Water (D5w) 1,000 mls @ 0 mls/hr IV .Q0M PRN PRN Reason: Hypoglycemia Ibuprofen (Motrin) 600 mg PO Q6H PRN PRN Reason: Pain Last Admin: 05/11/18 20:11 Dose: 600 mg Insulin Human Regular (Humulin R) 0 units SC .MILD SLIDING SCALE PRN PRN Reason: Mild Correctional Scale Last Admin: 05/11/18 17:21 Dose: 3 unit Insulin Human Regular (Humulin R) 0 units SC .BEDTIME SLIDING SC PRN PRN Reason: Bedtime Correctional Scale Last Admin: 05/11/18 20:13 Dose: 3 unit Levofloxacin (Levaquin) 500 mg PO DAILY [facility] Last Admin: 05/11/18 09:00 Dose: 500 mg Miscellaneous Medication (Pharmacy To Dose) 1 each PO DAILYPRN PRN PRN Reason: LABS Olanzapine (Zyprexa) 30 mg PO HS [facility] Last Admin: 05/11/18 20:11 Dose: 30 mg Ondansetron HCl (Zofran Odt) 4 mg PO Q6H PRN PRN Reason: Nausea/Vomiting Ondansetron HCl (Zofran) 4 mg IVP Q6H PRN PRN Reason: Nausea/Vomiting Last Admin: 05/11/18 11:47 Dose: 4 mg Senna/Docusate Sodium (Senokot S) 2 tab PO BID [facility] Last Admin: 05/11/18 20:11 Dose: 2 tab Warfarin Sodium (Coumadin) 10 mg PO 1700 [facility] Last Admin: 05/11/18 17:19 Dose: 10 mg
[2018-05-12 05:52] LABS: INR-International Normal Ratio 1.5; Prothrombin Time 18.2 SEC (12.0-14.7)
[2018-05-12 06:04] LABS: Anion Gap 10 mmol/L (10-20); BUN (Urea Nitrogen) 15 mg/dL (9.8-20.1); Calc. Creatinine Clearance 141 mL/min (70-130); Calcium 9.3 mg/dL (7.8-10.44); Carbon Dioxide 28 mmol/L (22-29); Chloride 105 mmol/L (98-107); Estimated GFR-MDRD 85; Glucose 216 mg/dL (70-105); Potassium 4.2 mmol/L (3.5-5.1); Sodium 139 mmol/L (136-145)
[2018-05-12 07:10] LABS: Band 8 % (5-11); Eosinophils 1 % (0-10); Hemoglobin 11.5 g/dL (12.0-16.0); Hypochromia SLIGHT = 6-15 cells (100X) (0-5/hpf); Lymphocytes 13 % (21-51); MDiff Complete? YES; Mean Corpuscular HGB CONC 30.2 g/dL (32.0-36.0); Mean Corpuscular Volume 79.6 fL (78.0-98.0); Mean Platelet Volume 11.6 fL (7.4-10.4); Metamyelocyte 1 % (0-0); Microcytosis SLIGHT = 6-15 cells (100X) (0-5/hpf); Monocytes 3 % (0-10); Myelocyte 2 % (0-0); Neutrophil 70 % (42-75); Ovalocytes SLIGHT = 2-5 cells (100X) (0-1/hpf); PLT Morphology Comment Appears Adequate; Platelet Count 182 thou/uL (130-400); Polychromasia SLIGHT = 2-3 cells (100X) (0-2/hpf); RBC Distribution Width 16.2 % (11.5-14.5); Reactive Lymphocytes 2 % (0-10); Red Blood Cell (RBC) Count 4.77 mill/uL (4.20-5.40); Target Cells SLIGHT = 2-5 cells (100X) (0-1/hpf); White Blood Cell (WBC) Count 20.3 thou/uL (4.8-10.8)
[2018-05-12] MEDS: Enoxaparin Sodium 120 MG/0.8 ML SYRINGE SC SCH ×2 (08:31→20:55)
[2018-05-12] MEDS: Senokot S 8.6-50 MG TAB PO SCH ×2 (08:32→20:54)
[2018-05-12] MEDS: Famotidine 20 MG TAB PO SCH ×2 (08:32→20:54)
[2018-05-12] MEDS ORDERED: Warfarin Sodium 10 MG TAB PO SCH (08:49)
--- NOTE | 2018-05-12 09:02 | PRG ---
DATE OF SERVICE: 05/12/2018 The patient has no complaints. She is doing well. She is having no chest pain or shortness of breat h. PHYSICAL EXAMINATION: VITAL SIGNS: Temperature is 97.3, pulse 106, respirations 19, O2 sat 99% on room air, blood pressure 100/66. HEENT: Unremarkable. NECK: No JVD. CHEST: Clear. CARDIAC: S1 and S2 regular. ABDOMEN: Soft. EXTREMITIES: No edema. LABORATORY DATA: INR is 1.5, hemoglobin is 11.5, hematocrit 37.9. White blood cell count 20.3. Sod ium 139, potassium 4.2, BUN 15, creatinine 0.8, glucose 216. ASSESSMENT: Pulmonary embolus/deep venous thrombosis. RECOMMENDATIONS: She continues to have persistently low INR. I will go ahead and raise her Coumadin dose to 12 mg daily. It is looking like it will be Thursday before she goes home. She will need case management to arrange for PT and INR checks at [facility] when she is discharged.
[2018-05-12] MEDS: Insulin Regular 300 UNITS/3 ML VIAL SC PRN ×3 (11:37→20:55)
[2018-05-12] MEDS: Warfarin Sodium 2.5 MG TAB PO SCH (16:47)
[2018-05-12] MEDS: Warfarin Sodium 10 MG TAB PO SCH (16:48)
--- NOTE | 2018-05-12 17:46 | PDOC.PN ---
- Subjective Encounter Start Date: 05/12/18 Encounter Start Time: 14:30 Patient seen and examined for PE. No new complaints. No overnight events - Objective Resuscitation Status: Resuscitation Status FULL:Full Resuscitation MAR Reviewed: Yes Vital Signs & Weight: Vital Signs (12 hours) Temp Pulse Pulse Resp BP BP Pulse Ox 05/12/18 11:12 05/12/18 11:09 88 120/80 05/12/18 08:00 99 05/12/18 07:37 97.3 F L 106 H 16 109/66 99 05/12/18 06:28 99 16 95 Pulse Ox Pulse Ox Pulse Ox 05/12/18 11:12 93 L 88 L 91 L 05/12/18 11:09 93 L 05/12/18 08:00 05/12/18 07:37 05/12/18 06:28 Weight Admit Weight 255 lb 4 oz Weight 259 lb 9.6 oz I&O: 05/11/18 05/12/18 05/13/18 06:59 06:59 06:59 Intake Total 800 1660 Balance 800 1660 Result Diagrams: 05/12/18 05:01 05/12/18 05:01 Additional Labs: Accuchecks 05/12/18 05/12/18 05/12/18 15:40 11:21 05:09 POC Glucose 247 H 221 H 206 H 05/11/18 20:10 POC Glucose 291 H Phys Exam - Physical Examination Constitutional: NAD Respiratory: no wheezing, no rhonchi Cardiovascular: RRR, no rub Gastrointestinal: soft, non-tender, positive bowel sounds Musculoskeletal: no edema Neurological: moves all 4 limbs Dx/Plan - Plan 1. PE/DVT 2. Sepsis due to suspected CAP - ?Pneumococcal 3. Morbid Obesity BMI 40.5 4. Impaired glucose tolerance 5. Other issues per previous notes PLAN: Cont Lovenox/Warfarin - Warfarin dose increased Cont PO Atbx AM labs Cont other meds as below Laboratory Tests 05/12/18 05:00 INR 1.5 Review of Systems - Review of Systems Cardiovascular: negative: chest pain, palpitations, orthopnea, paroxysmal nocturnal dyspnea, edema, light headedness, other Gastrointestinal: negative: Nausea, Vomiting, Abdominal Pain, Diarrhea, Constipation, Melena, Hematochezia, Other - Medications/Allergies Allergies/Adverse Reactions: Allergies Allergy/AdvReac Type Severity Reaction Status Date / Time No Known Drug Allergies Allergy Verified 05/06/18 05:23 Medications: Current Medications Acetaminophen (Tylenol) 650 mg PO Q4H PRN PRN Reason: Headache/Fever/Mild Pain (1-3) Last Admin: 05/10/18 21:01 Dose: 650 mg Albuterol/Ipratropium (Duoneb) 3 ml NEB [id number] [facility] Last Admin: 05/12/18 12:01 Dose: 3 ml Dextrose/Water (Dextrose 50%) 25 gm SLOW IVP PRN PRN PRN Reason: Hypoglycemia Enoxaparin Sodium (Lovenox) 110 mg SC Q12HR [facility] Last Admin: 05/12/18 08:31 Dose: 110 mg Famotidine (Pepcid) 20 mg PO BID [facility] Last Admin: 05/12/18 08:32 Dose: 20 mg Fentanyl (Sublimaze) 25 mcg SLOW IVP Q6H PRN PRN Reason: Moderate to Severe Pain (4-10) Last Admin: 05/07/18 23:21 Dose: 25 mcg Glucagon (Glucagon) 1 mg IM PRN PRN PRN Reason: Hypoglycemia Guaifenesin/Dextromethorphan (Robitussin Dm) 15 ml PO Q4H PRN PRN Reason: Cough Dextrose/Water (D5w) 1,000 mls @ 0 mls/hr IV .Q0M PRN PRN Reason: Hypoglycemia Ibuprofen (Motrin) 600 mg PO Q6H PRN PRN Reason: Pain Last Admin: 05/11/18 20:11 Dose: 600 mg Insulin Human Regular (Humulin R) 0 units SC .MILD SLIDING SCALE PRN PRN Reason: Mild Correctional Scale Last Admin: 05/12/18 16:49 Dose: 3 unit Insulin Human Regular (Humulin R) 0 units SC .BEDTIME SLIDING SC PRN PRN Reason: Bedtime Correctional Scale Last Admin: 05/11/18 20:13 Dose: 3 unit Levofloxacin (Levaquin) 500 mg PO DAILY [facility] Last Admin: 05/12/18 08:33 Dose: 500 mg Olanzapine (Zyprexa) 30 mg PO HS [facility] Last Admin: 05/11/18 20:11 Dose: 30 mg Ondansetron HCl (Zofran Odt) 4 mg PO Q6H PRN PRN Reason: Nausea/Vomiting Ondansetron HCl (Zofran) 4 mg IVP Q6H PRN PRN Reason: Nausea/Vomiting Last Admin: 05/11/18 11:47 Dose: 4 mg Senna/Docusate Sodium (Senokot S) 2 tab PO BID [facility] Last Admin: 05/12/18 08:32 Dose: 2 tab Warfarin Sodium (Coumadin) 2.5 mg PO 1700 [facility] Last Admin: 05/12/18 16:47 Dose: 2.5 mg Warfarin Sodium (Coumadin) 10 mg PO 1700 [facility] Last Admin: 05/12/18 16:48 Dose: 10 mg
[2018-05-12] MEDS: OLANZapine 5 MG TAB PO SCH (20:53)
[2018-05-12] MEDS: Ibuprofen 600 MG TAB PO PRN (20:54)
[2018-05-13 04:21] LABS: INR-International Normal Ratio 1.8; Prothrombin Time 20.8 SEC (12.0-14.7)
[2018-05-13] MEDS: Senokot S 8.6-50 MG TAB PO SCH ×2 (08:27→20:39)
[2018-05-13] MEDS: Enoxaparin Sodium 120 MG/0.8 ML SYRINGE SC SCH ×2 (08:27→20:40)
[2018-05-13] MEDS: Famotidine 20 MG TAB PO SCH ×2 (08:27→20:39)
--- NOTE | 2018-05-13 09:05 | PRG ---
DATE OF SERVICE: 05/13/2018 The patient is doing well, has no complaints. PHYSICAL EXAMINATION: VITAL SIGNS: Temperature 97.6, pulse 92, respiration 16, O2 sat 96%, blood pressure 130/71. HEENT: Unremarkable. NECK: No JVD. CHEST: Clear. CARDIAC: S1 and S2 regular. ABDOMEN: Soft. EXTREMITIES: No edema. LABORATORY DATA: INR is 1.8. ASSESSMENT: Deep venous thrombosis/pulmonary embolus. PLAN: I would assume that her INR will be about 2 tomorrow and she is able to go home. Case managem ent needs to make sure that she has follow up afterwards. At the current time, Pharmacy appears to [facility] managing her warfarin. I have nothing further to offer and will sign off.
[2018-05-13] MEDS: Insulin Regular 300 UNITS/3 ML VIAL SC PRN ×3 (12:30→20:42)
[2018-05-13 12:51] VITALS: BMI 40.6
[2018-05-13] MEDS: Warfarin Sodium 10 MG TAB PO SCH (17:25)
[2018-05-13] MEDS: Warfarin Sodium 2.5 MG TAB PO SCH (17:25)
--- NOTE | 2018-05-13 18:01 | PDOC.PN ---
- Subjective Encounter Start Date: 05/13/18 Encounter Start Time: 12:00 Patient seen and examined for PE. No CP/SOB. No new complaints. No overnight events - Objective Resuscitation Status: Resuscitation Status FULL:Full Resuscitation MAR Reviewed: Yes Vital Signs & Weight: Vital Signs (12 hours) Temp Pulse Resp BP Pulse Ox Pulse Ox Pulse Ox 05/13/18 15:24 88 L 90 L 05/13/18 11:42 92 16 96 05/13/18 08:00 97.6 F 92 16 103/71 96 05/13/18 06:23 101 H 16 94 L Weight Admit Weight 255 lb 4 oz Weight 259 lb 9.6 oz I&O: 05/12/18 05/13/18 05/14/18 06:59 06:59 06:59 Intake Total 1660 400 Balance 1660 400 Result Diagrams: 05/12/18 05:01 05/12/18 05:01 Additional Labs: Accuchecks 05/13/18 05/13/18 05/13/18 16:50 11:37 04:39 POC Glucose 217 H 213 H 177 H 05/12/18 20:19 POC Glucose 293 H Phys Exam - Physical Examination Constitutional: NAD Respiratory: no wheezing, no rhonchi Cardiovascular: RRR, no rub Gastrointestinal: soft, non-tender, positive bowel sounds Musculoskeletal: no edema Neurological: moves all 4 limbs Dx/Plan - Plan 1. PE/DVT 2. Sepsis due to suspected CAP - ?Pneumococcal 3. Morbid Obesity BMI 40.5 4. Impaired glucose tolerance 5. Other issues per previous notes PLAN: Cont Lovenox/Warfarin Cont Levaquin INR in AM Cont other meds as below Laboratory Tests 05/13/18 03:40 INR 1.8 Review of Systems - Review of Systems Respiratory: negative: Cough, Dry, Shortness of Breath, Hemoptysis, SOB with Excertion, Pleuritic Pain, Sputum, Wheezing Cardiovascular: negative: chest pain, palpitations, orthopnea, paroxysmal nocturnal dyspnea, edema, light headedness, other - Medications/Allergies Allergies/Adverse Reactions: Allergies Allergy/AdvReac Type Severity Reaction Status Date / Time No Known Drug Allergies Allergy Verified 05/06/18 05:23 Medications: Current Medications Acetaminophen (Tylenol) 650 mg PO Q4H PRN PRN Reason: Headache/Fever/Mild Pain (1-3) Last Admin: 05/10/18 21:01 Dose: 650 mg Albuterol/Ipratropium (Duoneb) 3 ml NEB [id number] [facility] Last Admin: 05/13/18 11:42 Dose: 3 ml Dextrose/Water (Dextrose 50%) 25 gm SLOW IVP PRN PRN PRN Reason: Hypoglycemia Enoxaparin Sodium (Lovenox) 110 mg SC Q12HR [facility] Last Admin: 05/13/18 08:27 Dose: 110 mg Famotidine (Pepcid) 20 mg PO BID [facility] Last Admin: 05/13/18 08:27 Dose: 20 mg Fentanyl (Sublimaze) 25 mcg SLOW IVP Q6H PRN PRN Reason: Moderate to Severe Pain (4-10) Last Admin: 05/07/18 23:21 Dose: 25 mcg Glucagon (Glucagon) 1 mg IM PRN PRN PRN Reason: Hypoglycemia Guaifenesin/Dextromethorphan (Robitussin Dm) 15 ml PO Q4H PRN PRN Reason: Cough Dextrose/Water (D5w) 1,000 mls @ 0 mls/hr IV .Q0M PRN PRN Reason: Hypoglycemia Ibuprofen (Motrin) 600 mg PO Q6H PRN PRN Reason: Pain Last Admin: 05/12/18 20:54 Dose: 600 mg Insulin Human Regular (Humulin R) 0 units SC .MILD SLIDING SCALE PRN PRN Reason: Mild Correctional Scale Last Admin: 05/13/18 17:26 Dose: 3 unit Insulin Human Regular (Humulin R) 0 units SC .BEDTIME SLIDING SC PRN PRN Reason: Bedtime Correctional Scale Last Admin: 05/12/18 20:55 Dose: 3 unit Levofloxacin (Levaquin) 500 mg PO DAILY [facility] Last Admin: 05/13/18 08:27 Dose: 500 mg Olanzapine (Zyprexa) 30 mg PO HS [facility] Last Admin: 05/12/18 20:53 Dose: 30 mg Ondansetron HCl (Zofran Odt) 4 mg PO Q6H PRN PRN Reason: Nausea/Vomiting Ondansetron HCl (Zofran) 4 mg IVP Q6H PRN PRN Reason: Nausea/Vomiting Last Admin: 05/11/18 11:47 Dose: 4 mg Senna/Docusate Sodium (Senokot S) 2 tab PO BID [facility] Last Admin: 05/13/18 08:27 Dose: 2 tab Warfarin Sodium (Coumadin) 2.5 mg PO 1700 [facility] Last Admin: 05/13/18 17:25 Dose: 2.5 mg Warfarin Sodium (Coumadin) 10 mg PO 1700 [facility] Last Admin: 05/13/18 17:25 Dose: 10 mg
[2018-05-13] MEDS ORDERED: [UNRECOGNIZED DRUG - REMARK] FS SCH (20:00)
[2018-05-13] MEDS: OLANZapine 5 MG TAB PO SCH (20:39)
[2018-05-13] MEDS: Acetaminophen 325 MG TAB PO PRN (22:08)
[2018-05-13] MEDS: Ondansetron PF 4 MG/2 ML Vial IVP PRN (22:11)
[2018-05-14 04:44] LABS: Hemoglobin 11.2 g/dL (12.0-16.0); Platelet Count 204 thou/uL (130-400)
[2018-05-14 04:46] LABS: INR-International Normal Ratio 1.9; Prothrombin Time 22.1 SEC (12.0-14.7)
[2018-05-14] MEDS: Insulin Regular 300 UNITS/3 ML VIAL SC PRN ×2 (06:31→11:33)
[2018-05-14] MEDS: Senokot S 8.6-50 MG TAB PO SCH (08:11)
[2018-05-14] MEDS: Famotidine 20 MG TAB PO SCH (08:13)
[2018-05-14 11:23] VITALS: BP 124/79; TEMP 98.7
--- NOTE | 2018-05-14 11:53 | DIS ---
DATE OF ADMISSION: 05/06/2018 DATE OF DISCHARGE: 05/14/2018 DISCHARGE DIAGNOSES: 1. Acute pulmonary embolus. 2. Acute right lower extremity deep venous thrombosis involving the greater saphenous vein and right common femoral vein. 3. Schizophrenia. 4. Morbid obesity. 5. Leukocytosis secondary to #1. 6. Impaired glucose tolerance with hemoglobin A1c 6.1. CONSULTATIONS: Dr. Pham and Dr. Rod with Pulmonology Service. PERTINENT LABORATORY AND X-RAY FINDINGS: Hemoglobin A1c 6.1. Lactic acid level 1.9, magnesium level 1.7. BNP less than 10. TSH 0.88. CBC showed a white blood cell count ranging between 17.5-26.6, h emoglobin ranged between 10.4-13.0, PT 22.1, INR 1.9 on 05/14/2018. Blood cultures x2 dated 018 showed no growth at 5 days. Sputum culture dated 05/07/2018 showed normal respiratory bipin. St ool Hemoccult dated 05/09/[address] angiogram of the chest dated 05/06/2018 showed extensive acute left-sided pulmonary emboli. Ladan ble chest x-ray dated 05/06/2018 showed left upper lobe infiltrate noted. Bilateral lower extremity venous Doppler study dated 05/06/2018 showed occlusive thrombus in the right lower extremity involvin g the greater saphenous vein with propagation and extension into the right common femoral vein. No e vidence for DVT in the left lower extremity. A 2D transthoracic echocardiogram dated 05/06/2018 show ed technically limited exam. Ejection fraction 65-70%. Grade I/III diastolic dysfunction. HOSPITAL COURSE: The patient was initially admitted to the Intermediate Care Unit after presenting w ith acute shortness of breath and left-sided chest pain. The patient was briefly placed on oxygen th ; however, quickly returned to room air after patient was evaluated and discovered with acute le ft upper lobe pulmonary emboli. The patient was placed on Lovenox therapy in addition to an addition al Coumadin per protocol. The patient was monitored by the Pulmonary Critical Care Service during he r hospital course stabilizing with anticoagulation. The patient underwent evaluation of the lower ex tremity showing right lower extremity DVT as stated previously and continued on anticoagulation throu gh the remainder of the hospital course. Due to the patient's lack of insurance, the patient was [facility] med an appropriate candidate for ongoing treatment with Coumadin. The patient's INR was slow for the rapeutic ranges during the hospital stay; however, by the time of discharge had reached 1.9. The pat ient overall remained clinically stable in regards to ambulatory and respiratory status. The patient 's vital signs have remained stable and patient on room air. I examined the patient at the time of discharge and discussed followup instructions and the need con sistent INR evaluation. The patient verbalized understanding and agreement, ready for discharge on 07/14/2017. DISCHARGE MEDICATIONS: 1. Fluoxetine 60 mg p.o. q.a.m. 2. Olanzapine 30 mg p.o. at bedtime. 3. Coumadin 5 mg p.o. daily. FOLLOWUP: The patient will follow up with [facility] in [place], [place] on 05/18/2018 at 9:15 a.m. CONDITION ON DISCHARGE: Fair. ACTIVITY: Ad ezio. DIET: Coumadin prudent. SPECIAL INSTRUCTIONS: Repeat INR on 05/18/2018. CODE STATUS: Full. DISPOSITION: Home on 05/14/2018.
--- NOTE | 2018-05-14 15:26 | EKG ---
Test Reason : Blood Pressure : / mmHG Vent. Rate : 115 BPM Atrial Rate : 115 BPM P-R Int : 136 ms QRS Dur : 080 ms QT Int : 358 ms P-R-T Axes : 053 -57 052 degrees QTc Int : 495 ms Sinus tachycardia Possible Left atrial enlargement Left anterior fascicular block Abnormal ECG Confirmed by ISADORA TRAN, JUANCARLOS Alamo ([id number]), news video editor LUIS FERNANDO DUARTE ([id number]) on 05/14/2018 3:25:54 PM Referred By: Confirmed By:JUANCARLOS MUIR MD
--- NOTE | 2018-05-17 13:32 | PQF ---
[employer] Win[employer] MyrnaMARTY CHARLES DO [id number] CLINICAL DOCUMENTATION CLARIFICATION FORM: POST DISCHARGE Addendum to original discharge summary date: ____ Late entry note date: __ Please exercise your independent, professional judgment in responding to the clarification form. Clinical indicators are provided on the bottom of this form for your review Please check appropriate box(es): [ ] Sepsis due to: (Pna, etc.) Due to: [ ] Device (please specify) [ ] Implant [ ] Graft [ ] Infusion [ ] SIRS due to non-infectious process (please specify etiology) [ ] with organ dysfunction [ ] without organ dysfunction [ ] Severe sepsis with acute organ dysfunction of: (Examples: respiratory failure, encephalopathy, acute kidney failure, other) [ ] Septic Shock [ ] Localized infection without sepsis [ ] Other diagnosis [ x ] Unable to determine In addition, please specify: Present on Admission (POA): [ ] Yes [ ] No [ x ] Unable to determine For continuity of documentation, please document condition throughout progress notes and discharge summary. Thank You. CLINICAL INDICATORS - SIGNS / SYMPTOMS / LABS POSSIBLE SEPSIS- H&P SEPSIS DUE TO SUSPECTED CAP- PN 05/08, 05/09, 05/10, 05/11, 05/12, 05/13 RISK FACTORS SUSPECTED Pneumonia, TREATMENTS: Blood/sputum/wound cultures IV antibiotics [employer] Win[employer] Viewer (This form is maintained as a part of the permanent medical record) 2014 [employer]. All Rights Reserved [email or web address] [phone] [email or web address]
== END 2018-05-14 11:53 | disposition home or self-care (01) | DRG 175 ==
LOC: ERS 01:53 → 2NO 04:53 → T4-B 05-10 14:17
PROVIDERS: ADMIT Internal Medicine; ATTEND Internal Medicine
DX: I26.99 Other pulmonary embolism without acute cor pulmonale (principal); J96.01 Acute respiratory failure with hypoxia; J18.9 Pneumonia, unspecified organism; J44.1 Chronic obstructive pulmonary disease with (acute) exacerbation; Z68.41 Body mass index [BMI] 40.0-44.9, adult; I82.411 Acute embolism and thrombosis of right femoral vein; F20.9 Schizophrenia, unspecified; F41.9 Anxiety disorder, unspecified; F32.9 Major depressive disorder, single episode, unspecified; M41.9 Scoliosis, unspecified; F17.210 Nicotine dependence, cigarettes, uncomplicated; E66.01 Morbid (severe) obesity due to excess calories; R73.9 Hyperglycemia, unspecified
CPT/HCPCS: 36415; 36416; 71045; 71275; 80048; 80053; 82550; 82553; 82565; 82805; 83036; 83605; 83735; 83880; 84443; 84484; 85014; 85018; 85025; 85049; 85379; 85610; 85730; 87040; 87070; 87205; 90471; 90686; 93005; 93306; 93970; 94640; 96372; 96374; 96376; G0008; G8978-GP-CJ; G8979-GP-CI; G8987-GO-CK; G8988-GO-CI; J1650; J1815; J1956; J2270; J2405; J2920; J3010; J7506; J7620